=== PATIENT | male | born 1980 | race Caucasian/White ===

== ENCOUNTER 2018-04-10 12:13 | Emergency (ER) | payer OTHER ==
[2018-04-10] MEDS ORDERED: DIPH,PERTUS(ACELL)TETVAC-LF 0.5 ML VIAL IM ONE (12:35)
[2018-04-10] MEDS ORDERED: PROPARACAINE 0.5% OPHTH DROPS 15 ML BTL BOTH EYES STA (13:12)
[2018-04-10] MEDS ORDERED: ERYTHROMYCIN 5 MG/GM OPHTH OINT 3.5 GM TUBE LEFT EYE STA (14:11)
--- NOTE | 2018-04-10 14:13 | ED ---
General Adult HPI - General Chief complaint: Eye Problems Stated complaint: POSS FB IN BOTH EYES Time Seen by Provider: 04/10/18 12:41 Source: patient, RN notes reviewed Mode of arrival: ambulatory Limitations: no limitations - History of Present Illness Initial comments: 37-year-old male presents to the emergency department for the chief complaint of foreign body in the left eye. Patient states he was working on a bench 3 days ago. He denies any significant pain at that time however shortly afterwards stated his left eye began to hurt. He states it is making the left side of his nose run. Patient admits to pain with light in both eyes however states he believes this is because his left eye associated sensitive. He denies any significant pain in the right eye. Patient is not up-to-date with tetanus vaccination. He denies any significant visual changes besides blurriness due to Pain with opening his left eye. Patient has no other complaints at this time including shortness of breath, chest pain, abdominal pain, nausea or vomiting, headache. - Related Data Home Medications Medication Instructions Recorded Confirmed Gabapentin [Neurontin] 600 mg PO HS 03/26/15 03/26/15 HYDROcodone/APAP 10-325MG [[place] 1 tab PO Q4HR PRN 03/26/15 03/26/15 10-325] Previous Rx's Medication Instructions Recorded Meclizine [Antivert] 25 mg PO DAILY 10 Days tab 03/26/15 Naproxen 500 mg PO Q12HR 14 Days tab 03/26/15 Allergies Allergy/AdvReac Type Severity Reaction Status Date / Time No Known Allergies Allergy Verified 04/10/18 12:34 Review of Systems ROS Statement: Those systems with pertinent positive or pertinent negative responses have been documented in the HPI. ROS Other: All systems not noted in ROS Statement are negative. 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 down legs History of Any Multi-Drug Resistant Organisms: None Reported Past Surgical History: No Surgical Hx Reported Past Psychological History: ADD/ADHD, Anxiety Smoking Status: Current every day smoker Past Alcohol Use History: None Reported Past Drug Use History: Marijuana General Exam Limitations: no limitations General appearance: alert, in no apparent distress Head exam: Present: atraumatic, normocephalic, normal inspection Eye exam: Present: PERRL, EOMI, conjunctival injection (Mild conjunctival injection), other (Small sub milimeter foreign body noted in the center of the left cornea. No foreign bodies evident in the right cornea. Lids were flipped on both eyes. No foreign bodies evident.). Absent: scleral icterus, periorbital swelling ENT exam: Present: normal exam, mucous membranes moist Neck exam: Present: normal inspection. Absent: tenderness, meningismus, lymphadenopathy Respiratory exam: Present: normal lung sounds bilaterally. Absent: respiratory distress, wheezes, rales, rhonchi, stridor Cardiovascular Exam: Present: regular rate, normal rhythm, normal heart sounds. Absent: systolic murmur, diastolic murmur, rubs, gallop, clicks Neurological exam: Present: alert, oriented X3, CN II-XII intact Psychiatric exam: Present: normal affect, normal mood Course Vital Signs 04/10/18 04/10/18 04/10/18 12:30 13:47 14:29 Temperature 97.8 F 97.6 F 97.8 F Pulse Rate 86 81 82 Respiratory 16 18 16 Rate Blood Pressure 147/90 130/87 127/80 O2 Sat by Pulse 98 98 98 Oximetry Medical Decision Making - Medical Decision Making 37-year-old male presents to the emergency department for a chief complaint of foreign body in the left eye. Patient states this occurred about 3 days ago. He does believe it is metal. He admits to minor irritation in the right eye when looking at bright lights that believes this is due to the irritation in his left eye which is significantly more prominent. On exam patient does have a small 7 mm foreign body that appears to be metal in the left center cornea. Both lids were flipped on bilateral eyes and no evidence of foreign body under eyelids. Proparacaine was used to numb the left eye. Q-tip was used to remove the foreign body without success. 18-gauge needle did remove the foreign body on the first attempt. However small rust ring does remain. Pine Knot brush was used to remove the rust ring. The eye was then stained with fluorescein stain and Wood's lamp was used to visualize the eye. This is the only area of abrasion noted. Negative Rodrigo sign. Patient was given tetanus shot. He was given erythromycin ointment here. He does not wear contacts. I did discuss urgent follow-up with gunner's mate g due to possible remnants of rust ring as I could not completely remove the ring. However much of the ring was removed without difficulty. Patient will follow-up and return if he has any worsening symptoms. Disposition Clinical Impression: Corneal foreign body, Corneal rust ring of left eye Disposition: HOME SELF-CARE Condition: Good Instructions: Corneal Abrasion (ED), Eye Foreign Body (ED) Additional Instructions: Please follow up with ophthalmology in one to 2 days. Please use antibiotic ointment as directed. Return to the emergency department if you have any worsening symptoms. Is patient prescribed a controlled substance at d/c from ED?: No Referrals: Alcon Perea MD [Primary Care Provider] - 1-2 days Wyatt Jarvis MD [STAFF PHYSICIAN] - 1-2 days Time of Disposition: 14:12
[2018-04-10 14:30] VITALS: BP 127/80; PULSE 82; RESP 16; TEMP 97.8
== END 2018-04-10 14:29 | disposition home or self-care (01) ==
LOC: EC 12:13
DX: T15.02XA Foreign body in cornea, left eye, initial encounter (principal); F41.9 Anxiety disorder, unspecified; F17.200 Nicotine dependence, unspecified, uncomplicated; Z79.899 Other long term (current) drug therapy; Z86.69 Personal history of other diseases of the nervous system and sense organs; Z23 Encounter for immunization; Y93.89 Activity, other specified; Y92.009 Unspecified place in unspecified non-institutional (private) residence as the place of occurrence of the external cause
CPT/HCPCS: 65220; 90471; 90715; 99283

== ENCOUNTER → 2018-05-30 | Outpatient (CLI) | payer BC ==
--- NOTE | 2018-05-30 20:47 | MR ---
EXAMINATION TYPE: MR brain wo/w con DATE OF EXAM: 05/30/2018 COMPARISON: CT brain 03/26/2015 HISTORY: Optic atrophy, lt sided vision loss TECHNIQUE: Multiplanar, multisequence images of the brain and brainstem is performed without and with IV contras t, utilizing 9.5 mL intravenous Gadavist . FINDINGS: Diffusion weighted images demonstrate no evidence of a recent infarct or other diffusion ab normality. There is no extra-axial fluid collection or significant white matter signal abnormality, small focus of increased signal on inversion recovery and T2-weighted sequences in the left frontal w emperatriz matter on axial image 19 is indeterminate and of questionable clinical significance. The ventri cular system and cisternal spaces are normal in size and appearance. The brain volume is age appropr iate. Midline structures demonstrate normal morphology. The craniocervical junction appears within normal limits. Post contrast images demonstrate no abnormal enhancement. The dural venous sinuses appear pa tent. The visualized sinuses are remarkable for possible polyp or mucus retention cyst left maxillary sinus and the globes are intact. IMPRESSION: Nonspecific findings described above. No abnormality evident to account for patient's sym ptoms.
== END | disposition home or self-care (01) ==
LOC: RADMRIMAIN 19:10
PROVIDERS: ATTEND Ophthalmology
DX: H47.212 Primary optic atrophy, left eye (principal); H53.122 Transient visual loss, left eye
CPT/HCPCS: 70553; A9585

== ENCOUNTER 2019-02-28 08:09 | Emergency (ER) | payer BC, OTHER ==
[2019-02-28] MEDS ORDERED: IPRATROPIUM-ALBUTEROL 3 ML NEB INHALATION STA (08:29)
--- NOTE | 2019-02-28 08:34 | ED ---
Chest Pain HPI - General Chief Complaint: Chest Pain Stated Complaint: chest pain Time Seen by Provider: 02/28/19 08:16 Source: patient Mode of arrival: ambulatory Limitations: no limitations - History of Present Illness Initial Comments: This is a 37-year-old male who benign past medical history states he's had a racing heart sensation or past several days this morning and way to work he started feeling left-sided chest pain initially sharp in no apparent: Nature mild to moderate in severity he also complains of some dizziness and fatigue some slight shortness of breath. He also states he has some back pain also in the same area he is a smoker he denies any recent fevers chills nausea vomiting sweats we did have diaphoresis today. No overt phlegm production. Feeling family history of heart disease was a cousin had a relatively early age. No other modifying factors MD Complaint: chest pain - Related Data Previous Rx's Medication Instructions Recorded Albuterol Inhaler [Ventolin Hfa 2 puff INHALATION Q6HR PRN #1 02/28/19 Inhaler] inhaler Ibuprofen 800 mg PO Q6HR PRN #20 tablet 02/28/19 Allergies Allergy/AdvReac Type Severity Reaction Status Date / Time No Known Allergies Allergy Verified 02/28/19 09:04 Review of Systems ROS Statement: Those systems with pertinent positive or pertinent negative responses have been documented in the HPI. ROS Other: All systems not noted in ROS Statement are negative. 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 down legs History of Any Multi-Drug Resistant Organisms: None Reported Past Surgical History: No Surgical Hx Reported Past Psychological History: No Psychological Hx Reported, ADD/ADHD, Anxiety Smoking Status: Current every day smoker Past Alcohol Use History: Occasional Past Drug Use History: Marijuana General Exam - General Exam Comments Initial Comments: This is a well-developed well-nourished awake alert oriented 3 male Limitations: no limitations General appearance: alert, in no apparent distress Head exam: Present: atraumatic, normocephalic, normal inspection Eye exam: Present: normal appearance, PERRL, EOMI. Absent: scleral icterus, conjunctival injection, periorbital swelling ENT exam: Present: normal exam, mucous membranes moist Neck exam: Present: normal inspection, full ROM, other (No stridor JVD or bruits). Absent: tenderness, meningismus, lymphadenopathy Respiratory exam: Present: chest wall tenderness (Reproducible tenderness palpation of the left costochondral margin no step-off or crepitation.[id number]), decreased breath sounds. Absent: respiratory distress, wheezes, rales, rhonchi, stridor Cardiovascular Exam: Present: regular rate, normal rhythm, normal heart sounds. Absent: systolic murmur, diastolic murmur, rubs, gallop, clicks GI/Abdominal exam: Present: soft, normal bowel sounds. Absent: distended, tenderness, guarding, rebound, rigid Extremities exam: Present: normal inspection, full ROM, normal capillary refill. Absent: tenderness, pedal edema, joint swelling, calf tenderness Back exam: Present: normal inspection Neurological exam: Present: alert, oriented X3, CN II-XII intact Psychiatric exam: Present: normal affect, normal mood Skin exam: Present: warm, dry, intact, normal color. Absent: rash Course Vital Signs 02/28/19 02/28/19 02/28/19 08:12 08:36 08:47 Temperature 97.9 F Pulse Rate 63 64 64 Respiratory 18 Rate Blood Pressure 127/84 O2 Sat by Pulse 98 Oximetry 02/28/19 02/28/19 02/28/19 09:00 09:06 09:08 Temperature 97.7 F Pulse Rate 69 Respiratory 15 20 20 Rate Blood Pressure 97/70 O2 Sat by Pulse 97 Oximetry Procedures - Smoking Cessation Time Spent Discussing Smoking Cessation w/Patient (Minutes): 3 Patient Acknowledges Need for Cessation: No Chest Pain MDM - MDM I did review the imaging and report no acute findings patient is feeling somewhat improved the presentation is consistent with costochondritis and chest wall pain in addition to some bronchospasm. I did a long discussion with him and his family he will be discharged on appropriate medication for the same. He was again encouraged to stop smoking Disposition Clinical Impression: Costochondritis, Chest wall syndrome, Acute bronchospasm, Smoking Disposition: HOME SELF-CARE Condition: Good Instructions (If sedation given, give patient instructions): Costochondritis (ED), Bronchospasm (ED) Additional Instructions: Prescriptions sent ER [facility] pharmacy Prescriptions: Ibuprofen 800 mg PO Q6HR PRN #20 tablet PRN Reason: Pain Albuterol Inhaler [Ventolin Hfa Inhaler] 2 puff INHALATION Q6HR PRN #1 inhaler PRN Reason: Dyspnea Is patient prescribed a controlled substance at d/c from ED?: No Referrals: None,Stated [Primary Care Provider] - 1-2 days
[2019-02-28 09:06] VITALS: TEMP 97.7
--- NOTE | 2019-02-28 09:13 | XR ---
EXAMINATION TYPE: XR chest 2V DATE OF EXAM: 02/28/2019 COMPARISON: NONE HISTORY: Chest pain TECHNIQUE: Frontal and lateral views of the chest are obtained. FINDINGS: There is no focal air space opacity. No evidence for pneumothorax. No pleural effusion. The cardiac silhouette size is within normal limits. The osseous structures are grossly intact. IMPRESSION: 1. No acute cardiopulmonary process.
[2019-02-28 09:14] LABS: Basophils # (A) 0.1 k/uL (0-0.2); Basophils % (A) 1 %; Eosinophils # (A) 0.1 k/uL (0-0.7); Eosinophils % (A) 2 %; HGB 15.9 gm/dL (13.0-17.5); Lymphocytes # (A) 1.5 k/uL (1.0-4.8); Lymphocytes % (A) 18 %; MCH 32.1 pg (25.0-35.0); MCHC 34.6 g/dL (31.0-37.0); MCV 92.8 fL (80.0-100.0); Mean Platelet Volume 5.6; Monocytes # (A) 0.7 k/uL (0-1.0); Monocytes % (A) 8 %; Neutrophils # (A) 5.5 k/uL (1.3-7.7); Neutrophils % (A) 68 %; Platelet Count 381 k/uL (150-450); RBC 4.96 m/uL (4.30-5.90)
[2019-02-28 09:30] LABS: INR 0.9 (<1.2); Partial Thromboplastin Time 24.4 sec (22.0-30.0); Prothrombin Time 9.8 sec (9.0-12.0)
[2019-02-28 09:36] LABS: ALT 28 U/L (21-72); AST 24 U/L (17-59); African American GFR (CKD) >90 (>60 ml/min/1.73 sqM); Albumin 4.5 g/dL (3.5-5.0); Alkaline Phosphatase 91 U/L (38-126); Anion Gap 8 mmol/L; Blood Urea Nitrogen 13 mg/dL (9-20); Calcium 10.1 mg/dL (8.4-10.2); Carbon Dioxide 24 mmol/L (22-30); Chloride 107 mmol/L (98-107); Creatine Kinase 378 U/L (55-170); Glucose 95 mg/dL (74-99); Magnesium 2.1 mg/dL (1.6-2.3); Potassium 4.8 mmol/L (3.5-5.1); Sodium 139 mmol/L (137-145); Total Bilirubin 0.7 mg/dL (0.2-1.3); Total Protein 7.1 g/dL (6.3-8.2)
[2019-02-28 09:42] LABS: D-Dimer <0.17 mg/L FEU (<0.60)
[2019-02-28] MEDS ORDERED: KETOROLAC 30 MG/ML 1 ML VIAL IVP STA (10:23)
[2019-02-28 11:19] VITALS: BP 97/65; PULSE 57; RESP 18
== END 2019-02-28 11:24 | disposition home or self-care (01) ==
LOC: EC 08:09
DX: M94.0 Chondrocostal junction syndrome [Tietze] (principal); J98.01 Acute bronchospasm; F17.200 Nicotine dependence, unspecified, uncomplicated; Z71.6 Tobacco abuse counseling
CPT/HCPCS: 36415; 94640; 93005; 85379; 83880; 80053; 84443; 82550; 83690; 83735; 84484; 85025; 85610; 85730; 71046; 99285; 96374; J1885

== ENCOUNTER 2019-07-01 01:10 | Emergency (ER) | payer BC, OTHER ==
[2019-07-01] MEDS ORDERED: SODIUM CHLORIDE 0.9% 1,000 ML IV STA (01:47)
[2019-07-01] MEDS ORDERED: KETOROLAC 30 MG/ML 1 ML VIAL IVP STA (01:47)
[2019-07-01 03:01] LABS: Basophils # (A) 0.1 k/uL (0-0.2); Basophils % (A) 0 %; Eosinophils # (A) 0.1 k/uL (0-0.7); Eosinophils % (A) 1 %; HCT 46.8 % (39.0-53.0); HGB 15.7 gm/dL (13.0-17.5); Lymphocytes # (A) 1.2 k/uL (1.0-4.8); Lymphocytes % (A) 6 %; MCH 30.2 pg (25.0-35.0); MCHC 33.5 g/dL (31.0-37.0); MCV 90.1 fL (80.0-100.0); Mean Platelet Volume 7.5; Monocytes # (A) 1.5 k/uL (0-1.0); Monocytes % (A) 7 %; Neutrophils # (A) 18.3 k/uL (1.3-7.7); Neutrophils % (A) 85 %; Platelet Count 324 k/uL (150-450); RDW 12.7 % (11.5-15.5); WBC 21.5 k/uL (3.8-10.6)
[2019-07-01 03:07] LABS: ALT 17 U/L (4-49); AST 23 U/L (17-59); African American GFR (CKD) >90 (>60 ml/min/1.73 sqM); Albumin 4.7 g/dL (3.5-5.0); Alkaline Phosphatase 123 U/L (38-126); Anion Gap 9 mmol/L; Blood Urea Nitrogen 10 mg/dL (9-20); Calcium 9.6 mg/dL (8.4-10.2); Carbon Dioxide 25 mmol/L (22-30); Chloride 102 mmol/L (98-107); Glucose 107 mg/dL (74-99); Magnesium 2.2 mg/dL (1.6-2.3); Non-African American GFR(CKD) >90 (>60 ml/min/1.73 sqM); Potassium 4.8 mmol/L (3.5-5.1); Sodium 136 mmol/L (137-145); Total Bilirubin 0.9 mg/dL (0.2-1.3); Total Protein 7.7 g/dL (6.3-8.2)
--- NOTE | 2019-07-01 03:18 | XR ---
EXAMINATION TYPE: XR chest 2V DATE OF EXAM: 07/01/2019 COMPARISON: 02/28/2019 HISTORY: Chest pain TECHNIQUE: 02/28/2019 FINDINGS: Heart is normal. Lungs are clear of consolidation. There is linear density right lung base. There are chest leads. Bony thorax is intact. IMPRESSION: There is mild subsegmental atelectasis right lung base that appears new compared to old e xam.
[2019-07-01 03:22] LABS: D-Dimer 0.19 mg/L FEU (<0.60); INR 0.9 (<1.2); Prothrombin Time 9.4 sec (9.0-12.0)
[2019-07-01 03:51] VITALS: RESP 18
[2019-07-01] MEDS ORDERED: IPRATROPIUM-ALBUTEROL 3 ML NEB INHALATION STA (04:14)
[2019-07-01] MEDS ORDERED: MORPHINE SULFATE 4 MG/ML SYRINGE IVP STA (04:52)
[2019-07-01] MEDS ORDERED: ONDANSETRON 4 MG/2 ML VIAL IVP STA (04:52)
--- NOTE | 2019-07-01 04:52 | ED ---
General Adult HPI - General Chief complaint: Chest Pain Stated complaint: Chest Pain Time Seen by Provider: 07/01/19 01:27 Source: patient, family Mode of arrival: wheelchair Limitations: no limitations - History of Present Illness Initial comments: 39-year-old male patient presents to the emergency department today for evaluation of left-sided chest pain. Patient describes the pain as a sharp stabbing pain that goes straight through to his back. Patient states the pain worsens with breathing. Patient states pain has been going on throughout the d ay but worsened significantly tonight. Patient states he is short of breath with this. Patient states he has been sick with upper respiratory symptoms including cough, congestion, fever for the last week. Temps as high as 102 degrees Fahrenheit. Patient states he is coughing up sputum. Patient states that the flu has been going through his house. He denies any history of lung conditions. States he does smoke cigarettes. He denies any history of IV drug use. Patient denies any recent rash, abdominal pain, nausea, vomiting, diarrhea, constipation, numbness, tingling, dizziness, weakness, hematuria, dysuria, urinary urgency, urinary frequency, headache, visual changes, or any other complaints. - Related Data Previous Rx's Medication Instructions Recorded Albuterol Inhaler [Ventolin Hfa 2 puff INHALATION Q6HR PRN #1 02/28/19 Inhaler] inhaler Ibuprofen 800 mg PO Q6HR PRN #20 tablet 02/28/19 Colchicine 0.6 mg PO BID #60 capsule 07/01/19 Ibuprofen [Motrin] 600 mg PO Q8HR PRN #60 tab 07/01/19 Allergies Allergy/AdvReac Type Severity Reaction Status Date / Time No Known Allergies Allergy Verified 07/01/19 01:25 Review of Systems ROS Statement: Those systems with pertinent positive or pertinent negative responses have been documented in the HPI. ROS Other: All systems not noted in ROS Statement are negative. 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 Vital signs upon presentation are temperature 98.6F, pulse 84, respirations 15, blood pressure 135/102, pulse ox 95% on room air per) Eye exam: Present: normal appearance, PERRL, EOMI. Absent: scleral icterus, conjunctival injection, periorbital swelling ENT exam: Present: normal exam, normal oropharynx, mucous membranes moist, TM's normal bilaterally Respiratory exam: Present: normal lung sounds bilaterally, respiratory distress (Tachypnea, abdominal accessory muscle use), chest wall tenderness (Left-sided). Absent: wheezes, rales, rhonchi, stridor Cardiovascular Exam: Present: regular rate, normal rhythm, normal heart sounds. Absent: systolic murmur, diastolic murmur, rubs, gallop, clicks GI/Abdominal exam: Present: soft, normal bowel sounds. Absent: distended, tenderness, guarding, rebound, rigid Neurological exam: Present: alert, oriented X3, CN II-XII intact Psychiatric exam: Present: normal affect, normal mood Skin exam: Present: warm, dry, intact, normal color. Absent: rash Course Vital Signs 07/01/19 07/01/19 07/01/19 01:22 03:51 04:38 Temperature 98.6 F Pulse Rate 84 75 76 Respiratory 15 18 Rate Blood Pressure 135/102 111/76 O2 Sat by Pulse 95 97 Oximetry 07/01/19 04:54 Temperature Pulse Rate 84 Respiratory Rate Blood Pressure O2 Sat by Pulse Oximetry EKG Findings - EKG Comments: EKG Findings:: EKG obtained at 05 20 shows normal sinus rhythm with a ventricular rate of 80, SD interval 134, QRS duration 86, QT 374, QTC 431. No evidence of ST elevation or depression. Medical Decision Making - Medical Decision Making 39-year-old male patient presents to the emergency department today for evaluation of left-sided chest pain. He describes the pain is sharp stabbing and radiating through to the back. Pain worsens with deep breathing and movement. Labs reviewed and did reveal elevated white blood cell count at 21.5. Chest x-ray shows no acute cardiopulmonary process. Troponin negative. V/S show no major abnormalities. He is afebrile. Oxygen saturation is 97-100% on room air. He is given breathing treatments which did not seem to improve his symptoms. He is given a dose of Toradol and morphine which did seem to improve his pain. Patient symptoms seem consistent with pericarditis, possibly pleuritis. He'll be discharged with anti-inflammatory medications for treatment. He is instructed to follow up with his primary care physician for recheck in 1-2 days. Return parameters were discussed in detail. He verbalizes understanding and agrees with this plan. - Lab Data Result diagrams: 07/01/19 01:35 07/01/19 01:35 Lab Results 07/01/19 07/01/19 07/01/19 Range/Units 01:35 01:35 01:35 WBC 21.5 H (3.8-10.6) k/uL RBC 5.20 (4.30-5.90) m/uL Hgb 15.7 (13.0-17.5) gm/dL Hct 46.8 (39.0-53.0) % MCV 90.1 (80.0-100.0) fL MCH 30.2 (25.0-35.0) pg MCHC 33.5 (31.0-37.0) g/dL RDW 12.7 (11.5-15.5) % Plt Count 324 (150-450) k/uL Neutrophils % 85 % Lymphocytes % 6 % Monocytes % 7 % Eosinophils % 1 % Basophils % 0 % Neutrophils # 18.3 H (1.3-7.7) k/uL Lymphocytes # 1.2 (1.0-4.8) k/uL Monocytes # 1.5 H (0-1.0) k/uL Eosinophils # 0.1 (0-0.7) k/uL Basophils # 0.1 (0-0.2) k/uL PT 9.4 (9.0-12.0) sec INR 0.9 (<1.2) APTT 25.0 (22.0-30.0) sec D-Dimer 0.19 (<0.60) mg/L FEU Sodium 136 L (137-145) mmol/L Potassium 4.8 (3.5-5.1) mmol/L Chloride 102 (98-107) mmol/L Carbon Dioxide 25 (22-30) mmol/L Anion Gap 9 mmol/L BUN 10 (9-20) mg/dL Creatinine 0.91 (0.66-1.25) mg/dL Est GFR (CKD-EPI)AfAm >90 (>60 ml/min/1.73 sqM) Est GFR (CKD-EPI)NonAf >90 (>60 ml/min/1.73 sqM) Glucose 107 H (74-99) mg/dL Calcium 9.6 (8.4-10.2) mg/dL Magnesium 2.2 (1.6-2.3) mg/dL Total Bilirubin 0.9 (0.2-1.3) mg/dL AST 23 (17-59) U/L ALT 17 (4-49) U/L Alkaline Phosphatase 123 (38-126) U/L Troponin I (0.000-0.034) ng/mL Total Protein 7.7 (6.3-8.2) g/dL Albumin 4.7 (3.5-5.0) g/dL Influenza Type A RNA (Not Detectd) Influenza Type B (PCR) (Not Detectd) 07/01/19 07/01/19 Range/Units 01:35 03:48 WBC (3.8-10.6) k/uL RBC (4.30-5.90) m/uL Hgb (13.0-17.5) gm/dL Hct (39.0-53.0) % MCV (80.0-100.0) fL MCH (25.0-35.0) pg MCHC (31.0-37.0) g/dL RDW (11.5-15.5) % Plt Count (150-450) k/uL Neutrophils % % Lymphocytes % % Monocytes % % Eosinophils % % Basophils % % Neutrophils # (1.3-7.7) k/uL Lymphocytes # (1.0-4.8) k/uL Monocytes # (0-1.0) k/uL Eosinophils # (0-0.7) k/uL Basophils # (0-0.2) k/uL PT (9.0-12.0) sec INR (<1.2) APTT (22.0-30.0) sec D-Dimer (<0.60) mg/L FEU Sodium (137-145) mmol/L Potassium (3.5-5.1) mmol/L Chloride (98-107) mmol/L Carbon Dioxide (22-30) mmol/L Anion Gap mmol/L BUN (9-20) mg/dL Creatinine (0.66-1.25) mg/dL Est GFR (CKD-EPI)AfAm (>60 ml/min/1.73 sqM) Est GFR (CKD-EPI)NonAf (>60 ml/min/1.73 sqM) Glucose (74-99) mg/dL Calcium (8.4-10.2) mg/dL Magnesium (1.6-2.3) mg/dL Total Bilirubin (0.2-1.3) mg/dL AST (17-59) U/L ALT (4-49) U/L Alkaline Phosphatase (38-126) U/L Troponin I <0.012 (0.000-0.034) ng/mL Total Protein (6.3-8.2) g/dL Albumin (3.5-5.0) g/dL Influenza Type A RNA Not Detected (Not Detectd) Influenza Type B (PCR) Not Detected (Not Detectd) - Radiology Data Radiology results: report reviewed, image reviewed Two-view x-ray of the chest is obtained. Report is reviewed in its entirety. Impression by Dr. Antonio shows mild subsegmental atelectasis right lung base that appears new compared to old exam. Disposition Clinical Impression: Chest pain, Pericarditis Disposition: HOME SELF-CARE Condition: Good Instructions (If sedation given, give patient instructions): Acute Pericarditis (ED) Additional Instructions: Take medications as directed. Follow up with your primary care physician for recheck in 1-2 days. Return to the emergency department immediately for any new, worsening, or concerning symptoms. Prescriptions: Colchicine 0.6 mg PO BID #60 capsule Ibuprofen [Motrin] 600 mg PO Q8HR PRN #60 tab PRN Reason: Pain Is patient prescribed a controlled substance at d/c from ED?: No Referrals: Alcon Perea MD [Primary Care Provider] - 1-2 days Time of Disposition: 05:35
[2019-07-01] MEDS ORDERED: COLCHICINE 0.6 MG EACH PO STA (05:26)
[2019-07-01] MEDS ORDERED: ACET/COD 300 MG/30 MG STARTER PACK 6 TAB BTL PO STA (05:35)
[2019-07-01 05:54] VITALS: BP 113/75; PULSE 72; TEMP 99.2
== END 2019-07-01 05:54 | disposition home or self-care (01) ==
LOC: EC 01:10
DX: I31.9 Disease of pericardium, unspecified (principal); D72.829 Elevated white blood cell count, unspecified; F17.200 Nicotine dependence, unspecified, uncomplicated
CPT/HCPCS: 36415; 94640; 93005; 85379; 80053; 83735; 84484; 85025; 85610; 85730; 87502; 71046; 99284; 96374; 96375 ×2; 96361 ×2; J2270; J2405; J1885

== ENCOUNTER 2019-07-01 22:44 | Inpatient (IN) | payer BC, OTHER ==
[2019-07-01] MEDS ORDERED: MORPHINE SULFATE 4 MG/ML SYRINGE IV STA (23:08)
[2019-07-01] MEDS ORDERED: SODIUM CHLORIDE 0.9% 500 ML 500 ML IV STA (23:08)
[2019-07-01 23:24] LABS: Basophils # (A) 0.1 k/uL (0-0.2); Basophils % (A) 0 %; Eosinophils # (A) 0.3 k/uL (0-0.7); Eosinophils % (A) 1 %; HCT 47.4 % (39.0-53.0); HGB 15.9 gm/dL (13.0-17.5); Lymphocytes % (A) 4 %; MCH 30.6 pg (25.0-35.0); MCHC 33.5 g/dL (31.0-37.0); MCV 91.3 fL (80.0-100.0); Mean Platelet Volume 7.1; Monocytes # (A) 1.3 k/uL (0-1.0); Monocytes % (A) 5 %; Neutrophils # (A) 23.1 k/uL (1.3-7.7); Neutrophils % (A) 89 %; Platelet Count 359 k/uL (150-450); RBC 5.19 m/uL (4.30-5.90); RDW 12.8 % (11.5-15.5)
--- NOTE | 2019-07-01 23:32 | ED ---
General Adult HPI - General Chief complaint: Chest Pain Stated complaint: Chest pain/SOB Time Seen by Provider: 07/01/19 22:50 Source: patient, RN notes reviewed, old records reviewed Mode of arrival: ambulatory Limitations: no limitations - History of Present Illness Initial comments: 39-year-old male presenting for evaluation of left-sided chest pain. Patient was seen emergency department yesterday for same complaint, he had chest pain workup that was negative and was discharged home. He returns today for reevaluation of the same left-sided chest pain which is sharp in nature. He does report a mild cough. Pain is worse with deep inspiration. He has no known history of coronary artery disease. No history of DVT or PE. He is a current smoker. No history of asthma or COPD. Denies fever or chills. Denies nausea or vomiting. Denies lower extremity pain or swelling. - Related Data Previous Rx's Medication Instructions Recorded Albuterol Inhaler [Ventolin Hfa 2 puff INHALATION Q6HR PRN #1 02/28/19 Inhaler] inhaler Ibuprofen 800 mg PO Q6HR PRN #20 tablet 02/28/19 Colchicine 0.6 mg PO BID #60 capsule 07/01/19 Ibuprofen [Motrin] 600 mg PO Q8HR PRN #60 tab 07/01/19 Allergies Allergy/AdvReac Type Severity Reaction Status Date / Time No Known Allergies Allergy Verified 07/01/19 22:48 Review of Systems ROS Statement: Those systems with pertinent positive or pertinent negative responses have been documented in the HPI. ROS Other: All systems not noted in ROS Statement are negative. 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 down legs History of Any Multi-Drug Resistant Organisms: None Reported Past Surgical History: No Surgical Hx Reported Past Psychological History: No Psychological Hx Reported, ADD/ADHD, Anxiety Smoking Status: Current every day smoker Past Alcohol Use History: Occasional Past Drug Use History: Marijuana General Exam Limitations: no limitations General appearance: alert, in no apparent distress Head exam: Present: atraumatic, normocephalic Eye exam: Present: normal appearance, PERRL ENT exam: Present: normal exam Neck exam: Present: normal inspection. Absent: tenderness, meningismus Respiratory exam: Present: normal lung sounds bilaterally. Absent: respiratory distress, wheezes, chest wall tenderness Cardiovascular Exam: Present: regular rate, normal rhythm GI/Abdominal exam: Present: soft. Absent: distended, tenderness, guarding, rebound Back exam: Present: normal inspection Neurological exam: Present: alert, oriented X3, CN II-XII intact. Absent: motor sensory deficit Psychiatric exam: Present: normal affect, normal mood Skin exam: Present: warm, dry, intact. Absent: cyanosis, diaphoretic Course Vital Signs 07/01/19 22:47 Temperature 98.2 F Pulse Rate 89 Respiratory 20 Rate Blood Pressure 143/80 O2 Sat by Pulse 99 Oximetry EKG Findings - EKG Comments: EKG Findings:: EKG: Normal sinus rhythm, rate of 90, MS interval 138 QRS duration 86, QTC 433, T-wave inversion 3, no ST segment elevation Medical Decision Making - Medical Decision Making 39-year-old male presenting with left-sided chest pain, worse with cough, worse with deep inspiration. Patient had flulike illness with fevers and cough over the past one week. Pain is pleuritic in nature. CT angiography is performed shows bilateral pneumonia. He has increasing white blood cell count at 26,000. Suspect his pain is from pleurisy secondary to pneumonia. He did have flulike illnesses covered for both community acquired pneumonia as well as post-i nfluenza pneumonia with gram-positive coverage. Patient will be admitted for IV antibiotics given the significant leukocytosis and the significant amount of pain that he is in. His troponin is negative yesterday and today. I suspect that all of his pain complaint can be related to pleurisy. He has no PE on CT angiography. Diagnosis: Bilateral pneumonia, pleurisy. - Lab Data Result diagrams: 07/01/19 22:57 07/01/19 22:57 Lab Results 07/01/19 07/01/19 07/01/19 Range/Units 22:57 22:57 22:57 WBC 26.0 H (3.8-10.6) k/uL RBC 5.19 (4.30-5.90) m/uL Hgb 15.9 (13.0-17.5) gm/dL Hct 47.4 (39.0-53.0) % MCV 91.3 (80.0-100.0) fL MCH 30.6 (25.0-35.0) pg MCHC 33.5 (31.0-37.0) g/dL RDW 12.8 (11.5-15.5) % Plt Count 359 (150-450) k/uL Neutrophils % 89 % Lymphocytes % 4 % Monocytes % 5 % Eosinophils % 1 % Basophils % 0 % Neutrophils # 23.1 H (1.3-7.7) k/uL Lymphocytes # 1.0 (1.0-4.8) k/uL Monocytes # 1.3 H (0-1.0) k/uL Eosinophils # 0.3 (0-0.7) k/uL Basophils # 0.1 (0-0.2) k/uL PT 9.9 (9.0-12.0) sec INR 0.9 (<1.2) APTT 24.8 (22.0-30.0) sec Sodium 135 L (137-145) mmol/L Potassium 4.3 (3.5-5.1) mmol/L Chloride 99 (98-107) mmol/L Carbon Dioxide 23 (22-30) mmol/L Anion Gap 13 mmol/L BUN 10 (9-20) mg/dL Creatinine 0.95 (0.66-1.25) mg/dL Est GFR (CKD-EPI)AfAm >90 (>60 ml/min/1.73 sqM) Est GFR (CKD-EPI)NonAf >90 (>60 ml/min/1.73 sqM) Glucose 97 (74-99) mg/dL Calcium 9.4 (8.4-10.2) mg/dL Magnesium 2.1 (1.6-2.3) mg/dL Total Bilirubin 1.4 H (0.2-1.3) mg/dL AST 22 (17-59) U/L ALT 14 (4-49) U/L Alkaline Phosphatase 126 (38-126) U/L Troponin I (0.000-0.034) ng/mL Total Protein 7.7 (6.3-8.2) g/dL Albumin 4.6 (3.5-5.0) g/dL Lipase 304 H (23-300) U/L 07/01/19 Range/Units 22:57 WBC (3.8-10.6) k/uL RBC (4.30-5.90) m/uL Hgb (13.0-17.5) gm/dL Hct (39.0-53.0) % MCV (80.0-100.0) fL MCH (25.0-35.0) pg MCHC (31.0-37.0) g/dL RDW (11.5-15.5) % Plt Count (150-450) k/uL Neutrophils % % Lymphocytes % % Monocytes % % Eosinophils % % Basophils % % Neutrophils # (1.3-7.7) k/uL Lymphocytes # (1.0-4.8) k/uL Monocytes # (0-1.0) k/uL Eosinophils # (0-0.7) k/uL Basophils # (0-0.2) k/uL PT (9.0-12.0) sec INR (<1.2) APTT (22.0-30.0) sec Sodium (137-145) mmol/L Potassium (3.5-5.1) mmol/L Chloride (98-107) mmol/L Carbon Dioxide (22-30) mmol/L Anion Gap mmol/L BUN (9-20) mg/dL Creatinine (0.66-1.25) mg/dL Est GFR (CKD-EPI)AfAm (>60 ml/min/1.73 sqM) Est GFR (CKD-EPI)NonAf (>60 ml/min/1.73 sqM) Glucose (74-99) mg/dL Calcium (8.4-10.2) mg/dL Magnesium (1.6-2.3) mg/dL Total Bilirubin (0.2-1.3) mg/dL AST (17-59) U/L ALT (4-49) U/L Alkaline Phosphatase (38-126) U/L Troponin I <0.012 (0.000-0.034) ng/mL Total Protein (6.3-8.2) g/dL Albumin (3.5-5.0) g/dL Lipase (23-300) U/L Disposition Clinical Impression: Pleurisy, Bilateral pneumonia Disposition: ADMITTED IP TO THIS [facility] Condition: Stable Is patient prescribed a controlled substance at d/c from ED?: No Referrals: Alcon Perea MD [Primary Care Provider] - 1-2 days Decision to Admit Reason: Admit from EC Decision Date: 07/01/19 Decision Time: 23:57
[2019-07-01 23:35] LABS: ALT 14 U/L (4-49); AST 22 U/L (17-59); African American GFR (CKD) >90 (>60 ml/min/1.73 sqM); Albumin 4.6 g/dL (3.5-5.0); Alkaline Phosphatase 126 U/L (38-126); Anion Gap 13 mmol/L; Blood Urea Nitrogen 10 mg/dL (9-20); Calcium 9.4 mg/dL (8.4-10.2); Carbon Dioxide 23 mmol/L (22-30); Chloride 99 mmol/L (98-107); Glucose 97 mg/dL (74-99); INR 0.9 (<1.2); Magnesium 2.1 mg/dL (1.6-2.3); Non-African American GFR(CKD) >90 (>60 ml/min/1.73 sqM); Potassium 4.3 mmol/L (3.5-5.1); Sodium 135 mmol/L (137-145); Total Bilirubin 1.4 mg/dL (0.2-1.3); Total Protein 7.7 g/dL (6.3-8.2)
[2019-07-01 23:36] LABS: Partial Thromboplastin Time 24.8 sec (22.0-30.0); Prothrombin Time 9.9 sec (9.0-12.0)
--- NOTE | 2019-07-01 23:45 | CT ---
EXAMINATION TYPE: CT angio chest DATE OF EXAM: 07/01/2019 COMPARISON: None HISTORY: SOB CT DLP: 407.9 mGycm Automated exposure control for dose reduction was used. CONTRAST: Performed with IV Contrast, patient injected with 80 mL of Isovue 370. Our 3-D post processed images. There is no mediastinal adenopathy. Thoracic aorta is intact. There is no aneurysm or dissection. The re are multiple bilateral hilar lymph nodes that measure up to 1.5 cm. Heart size is normal. There is no pericardial effusion. There is some wedge-shaped lingula consolidation of the left upper lobe. Th ere is some patchy infiltrate and atelectasis left posterior lung base. There is mild patchy atelecta sis right posterior lung base. There is no pleural effusion. I see no filling defects in the pulmonary arteries. Thoracic spine is intact. Bony thorax is intact. The upper abdominal soft tissues are intact. IMPRESSION: Bilateral patchy pneumonia and atelectasis as above. No evidence of pulmonary embolism. Normal heart. There are bilateral bronchial lymph nodes more likely related to inflammatory disease.
[2019-07-01] MEDS ORDERED: cefTRIAXone IN SWFI 1,000 MG/10 ML SYRINGE IVP STA (23:48)
[2019-07-01] MEDS ORDERED: KETOROLAC 30 MG/ML 1 ML VIAL IVP STA (23:48)
[2019-07-01] MEDS ORDERED: AZITHROMYCIN 500 MG in SODIUM CHLORIDE 0.9% 250 ML IVPB STA (23:48)
[2019-07-01] MEDS ORDERED: KETOROLAC 30 MG/ML 1 ML VIAL IVP PRN (23:50)
[2019-07-01] MEDS ORDERED: NALOXONE 0.4 MG/ML 1 ML VIAL IV PRN (23:50)
[2019-07-01] MEDS ORDERED: VANCOMYCIN IV PER PHARMACY 1 EACH MISC MISCELLANE PRN (23:50)
[2019-07-01] MEDS ORDERED: ACETAMINOPHEN TAB 325 MG TAB PO PRN (23:50)
[2019-07-02] MEDS: SODIUM CHLORIDE 0.9% 1,000 ML IV SCH ×2 (00:10→14:12)
[2019-07-02] MEDS ORDERED: VANCOMYCIN 1,500 MG in SODIUM CHLORIDE 0.9% 250 ML IVPB ONE (01:00)
[2019-07-02] MEDS: MORPHINE SULFATE 4 MG/ML SYRINGE IV PRN ×4 (01:50→14:12)
[2019-07-02] MEDS: VANCOMYCIN 1,750 MG in SODIUM CHLORIDE 0.9% 500 ML 500 ML IVPB SCH (14:12)
--- NOTE | 2019-07-02 14:31 | P.HPIM ---
History of Present Illness H&P Date: 07/02/19 Chief Complaint: Cough, sputum History of presenting complaint: This is a pleasant [address] mckeon from [facility]. Patient normally in good health except for herniated disc and some neuropathy from there. 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 Initially patient's 6-year-old son got sick and the mother got sick. For about a week. Patient started of with vomiting, cough, fever of 103., tired rundown. Also some diarrhea and aching muscles.. Patient come to the ER yesterday. Patient in the ER was felt to be pericarditis and was discharged home on colchicine and Motrin. Patient presents was still cough yellow-brown sputum, significant left-sided pleuritic chest pain. Predominantly with deep breathing or with coughing. Appetite has not been good. Tired rundown. Admitted. Review of systems: GEN.: Tired rundown, fever EYES: None HEENT: None NECK: None RESPIRATORY: As above CARDIOVASCULAR: None GASTROINTESTINAL: None GENITOURINARY: None MUSCULOSKELETAL: Chronic low back pain] LYMPHATICS: None HEMATOLOGICAL: None PSYCHIATRY: None NEUROLOGICAL: None Past medical history to include: Continue low back disc with some radiculopathy, ADHD, anxiety. 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 . Is a 6-year-old child at home. Does marijuana every other day. Smoking average of 2 packs a day for over 25 years. Denies use of any other drugs. Family history: Reviewed, noncontributory to presentation Physical examination: VITAL SIGNS: 98.6, 84, 15, 135/102, 95% on 2 L-open presentation GENERAL: BMI 29.5, sitting up, tired. EYES: Pupils equal. Conjunctiva normal. HEENT: External appearance of nose and ears normal, oral cavity grossly normal. NECK: JVD not raised; masses not palpable. HEART: First and second heart sounds are normal; no edema. No pericardial rub LUNGS: Respiratory rate increased, decreased breath sounds some wheezing some co arse breath sounds. ABDOMEN: Soft, nontender, liver spleen not palpable, no masses palpable. PSYCH: [Alert and oriented x3; mood and affect anxious. NEUROLOGICAL: Cranial nerves grossly intact; no facial asymmetry, power and sensation grossly intact. LYMPHATICS: No lymph nodes palpable in the axilla and neck INVESTIGATIONS, reviewed in the clinical context: White count 26 hemoglobin 15.9, increased neutrophils, potassium 4.3, crit 0.95. Influenza type A and B both negative. EKG tracing-personally reviewed by me. No ST segment changes sinus rhythm. No evidence of pericarditis. Chest CTA-bilateral infiltrates Assessment: -Acute bilateral pneumonitis with secondary bacterial infection. Possibly started as a viral infection from his son to his and himself. Possibly sepsis -Acute COPD exacerbation in a smoker -Chronic nicotine dependence patient cigarette smoker -Recreational marijuana use -Left-sided pleurisy. Plan: Patient be started on IV Zosyn every 6. Nebulized bronchodilators, inhaled and IV steroids. Sputum will be sent off for Gram stain and culture. IV fluids. Patient reassured. Lovenox for DVT prophylaxis. Nicotine patch. 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 down legs History of Any Multi-Drug Resistant Organisms: None Reported Past Surgical History: No Surgical Hx Reported Past Psychological History: No Psychological Hx Reported, ADD/ADHD, Anxiety Smoking Status: Current every day smoker Past Alcohol Use History: Occasional Additional Past Alcohol Use History / Comment(s): Patient reports not having smoked in the past 3 days Past Drug Use History: Marijuana Medications and Allergies Home Medications Medication Instructions Recorded Confirmed Type No Known Home Medications 07/02/19 07/02/19 History Allergies Allergy/AdvReac Type Severity Reaction Status Date / Time No Known Allergies Allergy Verified 07/02/19 10:32 Physical Exam Vitals: Vital Signs Temp Pulse Pulse Resp BP BP Pulse Ox 07/02/19 08:28 98.8 F 75 16 114/77 95 07/02/19 01:13 98.6 F 82 14 108/67 96 07/02/19 00:24 98.6 F 86 18 124/86 97 07/01/19 22:47 98.2 F 89 20 143/80 99 Intake and Output 07/01/19 07/02/19 07/02/19 22:59 06:59 14:59 Intake Total 250 Balance 250 Intake: Intake, IV Titration 250 Amount Vancomycin 1,500 mg In 250 Sodium Chloride 0.9% 250 ml @ 125 mls/hr IVPB ONCE ONE Rx#:[id number] Other: Weight 90.718 kg 90.718 kg Results CBC & Chem 7: 03/08/20 22:57 07/01/19 22:57 Labs: Abnormal Lab Results - Last 24 Hours (Table) 07/01/19 07/01/19 Range/Units 22:57 22:57 WBC 26.0 H (3.8-10.6) k/uL Neutrophils # 23.1 H (1.3-7.7) k/uL Monocytes # 1.3 H (0-1.0) k/uL Sodium 135 L (137-145) mmol/L Total Bilirubin 1.4 H (0.2-1.3) mg/dL Lipase 304 H (23-300) U/L Thrombosis Risk Factor Assmnt - Choose All That Apply Any of the Below Risk Factors Present?: No Other Risk Factors: No Other congenital or acquired thrombophilia - If yes, enter type in comment: No Thrombosis Risk Factor Assessment Level: Very Low Risk
[2019-07-02] MEDS: FAMOTIDINE 20 MG TAB PO SCH ×2 (15:53→21:42)
[2019-07-02] MEDS: IPRATROPIUM-ALBUTEROL 3 ML NEB INHALATION SCH ×3 (16:31→20:32)
[2019-07-02] MEDS: BUDESONIDE 1 MG/2 ML NEBU INHALATION SCH ×2 (16:32→20:32)
[2019-07-02] MEDS: ENOXAPARIN 40 MG/0.4 ML SYRINGE SQ SCH (17:56)
[2019-07-02] MEDS: NAPROXEN 250 MG TAB PO SCH ×2 (17:57→21:50)
[2019-07-02] MEDS: LACTATED RINGERS 1,000 ML IV SCH ×2 (17:58→21:43)
[2019-07-02] MEDS: methylPREDNISolone SOD SUCCI 40 MG/ML 1 ML VIAL IV SCH (17:58)
[2019-07-02] MEDS: PIPERACILLIN-TAZOBACTAM 3.375 GM in SODIUM CHLORIDE 0.9% 100 ML IVPB SCH (17:58)
[2019-07-03] MEDS: PIPERACILLIN-TAZOBACTAM 3.375 GM in SODIUM CHLORIDE 0.9% 100 ML IVPB SCH ×3 (00:30→16:16)
[2019-07-03] MEDS: methylPREDNISolone SOD SUCCI 40 MG/ML 1 ML VIAL IV SCH ×3 (00:30→16:16)
[2019-07-03] MEDS: IPRATROPIUM-ALBUTEROL 3 ML NEB INHALATION SCH ×8 (01:29→20:24)
[2019-07-03] MEDS: LACTATED RINGERS 1,000 ML IV SCH ×3 (04:47→22:58)
[2019-07-03] MEDS: VANCOMYCIN 1,750 MG in SODIUM CHLORIDE 0.9% 500 ML 500 ML IVPB SCH (04:48)
[2019-07-03] MEDS: BUDESONIDE 1 MG/2 ML NEBU INHALATION SCH ×3 (07:36→20:24)
[2019-07-03] MEDS ORDERED: KETOROLAC 30 MG/ML 1 ML VIAL IVP PRN (07:51)
[2019-07-03] MEDS: NAPROXEN 250 MG TAB PO SCH (07:53)
[2019-07-03] MEDS: FAMOTIDINE 20 MG TAB PO SCH ×2 (07:58→21:25)
[2019-07-03] MEDS: ENOXAPARIN 40 MG/0.4 ML SYRINGE SQ SCH (07:58)
[2019-07-03 09:05] LABS: HCT 44.5 % (39.0-53.0); HGB 14.6 gm/dL (13.0-17.5); MCH 30.5 pg (25.0-35.0); MCHC 32.7 g/dL (31.0-37.0); MCV 93.3 fL (80.0-100.0); Mean Platelet Volume 7.9; Platelet Count 418 k/uL (150-450); RBC 4.76 m/uL (4.30-5.90); RDW 12.8 % (11.5-15.5); WBC 20.5 k/uL (3.8-10.6)
[2019-07-03 09:22] LABS: African American GFR (CKD) >90 (>60 ml/min/1.73 sqM); Anion Gap 11 mmol/L; Blood Urea Nitrogen 16 mg/dL (9-20); Calcium 9.5 mg/dL (8.4-10.2); Carbon Dioxide 27 mmol/L (22-30); Chloride 101 mmol/L (98-107); Glucose 113 mg/dL (74-99); Non-African American GFR(CKD) >90 (>60 ml/min/1.73 sqM); Potassium 5.1 mmol/L (3.5-5.1); Sodium 139 mmol/L (137-145)
[2019-07-03] MEDS ORDERED: NICOTINE POLACRILEX 2 MG GUM BUCCAL PRN (11:58)
[2019-07-03] MEDS: NICOTINE 21MG/24HR PATCH TRANSDERM SCH ×2 (12:07→21:25)
[2019-07-03] MEDS: VANCOMYCIN 1,500 MG in SODIUM CHLORIDE 0.9% 250 ML IVPB SCH ×2 (13:00→21:26)
--- NOTE | 2019-07-03 23:36 | P.PN ---
Progress Note - Text Progress Note Date: 07/03/19 Chief Complaint: Cough, sputum History of presenting complaint: This is a pleasant [address] mckeon from [facility]. Patient normally in good health except for herniated disc and some neuropathy from there. 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 Initially patient's 6-year-old son got sick and the mother got sick. For about a week. Patient started of with vomiting, cough, fever of 103., tired rundown. Also some diarrhea and aching muscles.. Patient come to the ER yesterday. Patient in the ER was felt to be pericarditis and was discharged home on colchicine and Motrin. Patient presents was still cough yellow-brown sputum, significant left-sided pleuritic chest pain. Predominantly with deep breathing or with coughing. Appetite has not been good. Tired rundown. Admitted. Admitted with bilateral pneumonia, positive blood cultures for S pneumoniae. Today-. He is slightly better. Still coughing up hellen sputum. Patient had been reluctant to take his bronchodilators. l pleuritic pain is improving. On IV Toradol. at the bedside. Review of systems: Was done for constitutional, cardiovascular, GI, pulmonary. relevant finding as above Active Medications Acetaminophen (Tylenol Tab) 650 mg PO Q6HR PRN PRN Reason: Mild Pain or Fever > 100.5 Last Admin: 07/02/19 19:53 Dose: 650 mg Documented by: Albuterol/Ipratropium (Duoneb 0.5 Mg-3 Mg/3 Ml Soln) 3 ml INHALATION RT-QID [facility] Last Admin: 07/03/19 20:24 Dose: 3 ml Documented by: Budesonide (Pulmicort) 1 mg INHALATION RT-BID [facility] Last Admin: 07/03/19 20:24 Dose: 1 mg Documented by: Enoxaparin Sodium (Lovenox) 40 mg SQ DAILY [facility] Last Admin: 07/03/19 07:58 Dose: 40 mg Documented by: Famotidine (Pepcid) 20 mg PO BID [facility] Last Admin: 07/03/19 21:25 Dose: 20 mg Documented by: Piperacillin Sod/Tazobactam (Sod 3.375 gm/ Sodium Chloride) 100 mls @ 25 mls/hr IVPB Q8H [facility] Last Admin: 07/03/19 16:16 Dose: 25 mls/hr Documented by: Lactated Ringer's (Lactated Ringers) 1,000 mls @ 125 mls/hr IV .Q8H [facility] Last Admin: 07/03/19 22:58 Dose: Not Given Documented by: Vancomycin HCl 1,500 mg/ (Sodium Chloride) 250 mls @ 125 mls/hr IVPB Q8H [facility] Last Admin: 07/03/19 21:26 Dose: 125 mls/hr Documented by: Ketorolac Tromethamine (Toradol) 15 mg IVP Q6HR PRN PRN Reason: Pain Stop: 07/07/19 07:51 Last Admin: 07/03/19 07:59 Dose: 15 mg Documented by: Methylprednisolone Sodium Succinate (Solu-Medrol) 40 mg IV Q8HR [facility] Last Admin: 07/03/19 16:16 Dose: 40 mg Documented by: Miscellaneous Information (Vancomycin Trough Due) 0 each MISCELLANE DIRECTED ONE Stop: 07/04/19 13:01 Naloxone HCl (Narcan) 0.2 mg IV Q2M PRN PRN Reason: Opioid Reversal Nicotine (Habitrol 21mg/24hr Patch) 1 patch TRANSDERM DAILY [facility] Last Admin: 07/03/19 21:25 Dose: 1 patch Documented by: Nicotine Polacrilex (Nicorette Gum) 2 mg BUCCAL Q4HR PRN PRN Reason: Nicotine Cravings Physical examination: VITAL SIGNS: 97.8, 77, 18, 143/81, 94% on room air GENERAL: Sitting on bed, looking a bit better EYES: Pupils equal. Conjunctiva normal. HEENT: External appearance of nose and ears normal, oral cavity grossly normal. NECK: JVD not raised; masses not palpable. HEART: First and second heart sounds are normal; no edema. No pericardial rub LUNGS: Respiratory rate increased, decreased breath sounds some wheezing ABDOMEN: Soft, nontender, liver spleen not palpable, no masses palpable. PSYCH: [Alert and oriented x3; mood and affect anxious. INVESTIGATIONS, reviewed in the clinical context: White count 20.5 hemoglobin 14.6 potassium 5.1 Problem calcitonin 0.67 Blood culture-streptococcus pneumoniae Previous testing White count 26 hemoglobin 15.9, increased neutrophils, potassium 4.3, crit 0.95. Influenza type A and B both negative. EKG tracing-personally reviewed by me. No ST segment changes sinus rhythm. No evidence of pericarditis. Chest CTA-bilateral infiltrates Assessment: -Acute bilateral S pneumoniae with positive blood cultures causing sepsis, POA -Acute COPD exacerbation in a smoker -Chronic nicotine dependence patient cigarette smoker -Recreational marijuana use -Left-sided pleurisy. Plan: Patient clinically responding to Zosyn. We'll DC the vancomycin. ID was consulted. D counseling was done with the patient and questions were answered. Did explain it was not safe for patient to leave today. Admitted to the hospital at least for at least another 24 hours. Patient also refuses bronchodilators and counseling for the same. Total time spent today was about 45 minutes over 25 minutes of discussion
[2019-07-04] MEDS: PIPERACILLIN-TAZOBACTAM 3.375 GM in SODIUM CHLORIDE 0.9% 100 ML IVPB SCH ×2 (00:50→09:05)
--- NOTE | 2019-07-04 07:10 | CONS ---
CONSULTATION DATE OF SERVICE: 07/03/2019 REASON FOR CONSULTATION: Pneumococcal sepsis. HISTORY OF PRESENT ILLNESS: The patient is a 39-year-old male presenting to the ER at [facility] on the 30 of June with chief complaints of left-sided chest pain. The patient's symptoms have been going on for a few days before he presented to the hospital. He described the pain to the left side of the chest to be sharp and throbbing and worse with taking a deep breath, intensity could be almost 7 to 8 out of 10 and no radiation. The patient also had associated cough which has been moderate in intensity and has been bringing up some yellow sputum. No hemoptysis. The patient has been complaining of fever with chills with these symptoms and the patient was evaluated by the ER physician. On arrival to the ER, the patient has been afebrile. The patient did have elevated white count 26,000. The patient did have a normal creatinine, procalcitonin 0.67. Influenza PCR was negative. The patient did have a CT angiogram and that has been negative for PE; however, showed bilateral patchy pneumonia and atelectasis. The patient has been treated with vancomycin and Zosyn with blood cultures now showing a Streptococcus pneumoniae that prompted Infectious Disease consultation. REVIEW OF SYSTEMS: Positive points have been mentioned in HPI. Rest of the systems are negative. PAST MEDICAL HISTORY: Chronic low back pain from herniated discs, also history of ADHD and anxiety. PAST SURGICAL HISTORY: He had no major surgery. SOCIAL HISTORY: Current everyday smoker. Occasionally drinks and marijuana use. FAMILY HISTORY: No pertinent findings noticed. ALLERGIES: No known drug allergies. MEDICATIONS: Medications include the patient is currently on Tylenol, DuoNeb, Pulmicort, Lovenox, Pepcid, Toradol, lactated Ringers, Solu-Medrol, Vancomycin and Zosyn. PHYSICAL EXAMINATION: Blood pressure is 135/70 with the pulse of 75, temperature 98.1. He is 96% on 2 L nasal cannula. General description is a middle-aged male up in the bed in no distress. No tachypnea or accessory muscle of respiration use. HEENT: Examination shows no pallor or scleral icterus. Oral mucous membrane is dry. No pharyngeal erythema or thrush. NECK: Trachea central. No thyromegaly. LUNGS: Unlabored breathing. Decreased breath sounds at the bases. No wheeze. HEART: S1, S2. Regular rate and rhythm. ABDOMEN: Soft, no tenderness. EXTREMITIES: No edema of the feet. SKIN EXAMINATION: No rash or mass palpable. NEUROLOGIC: The patient is awake, alert, oriented. Mood and affect normal. LABS: Hemoglobin is 14.6, white count 20.5, admission white count 26,000. BUN of 16, creatinine 0.89. Blood culture with strep pneumoniae. DIAGNOSTIC IMPRESSION AND PLAN: Patient with Streptococcus pneumoniae sepsis in this patient who presented to the hospital with left-sided chest pain, likely secondary to pneumonia with no clear history of recent antibiotic exposure could be sensitive pathogen. However, not entirely excluded. PLAN: 1. Vancomycin pharmacy to dose target of 15 watching his kidney functions and Vanco trough closely. 2. Discontinue Zosyn. 3. Add Rocephin 2 grams daily. 4. We will follow up on clinical condition and culture to further adjust medication if needed. Thank you for this consultation. Will follow this patient along with you. MMODL / IJN: [id number] /
[2019-07-04 07:51] LABS: HCT 39.2 % (39.0-53.0); HGB 13.2 gm/dL (13.0-17.5); MCH 30.6 pg (25.0-35.0); MCHC 33.6 g/dL (31.0-37.0); MCV 91.1 fL (80.0-100.0); Mean Platelet Volume 7.1; Platelet Count 510 k/uL (150-450); RDW 12.8 % (11.5-15.5); WBC 33.1 k/uL (3.8-10.6)
[2019-07-04 08:02] LABS: African American GFR (CKD) >90 (>60 ml/min/1.73 sqM); Anion Gap 10 mmol/L; Blood Urea Nitrogen 17 mg/dL (9-20); Calcium 9.6 mg/dL (8.4-10.2); Carbon Dioxide 25 mmol/L (22-30); Chloride 105 mmol/L (98-107); Glucose 115 mg/dL (74-99); Non-African American GFR(CKD) >90 (>60 ml/min/1.73 sqM); Potassium 4.6 mmol/L (3.5-5.1); Sodium 140 mmol/L (137-145)
[2019-07-04] MEDS: IPRATROPIUM-ALBUTEROL 3 ML NEB INHALATION SCH ×4 (08:24→20:30)
[2019-07-04] MEDS: BUDESONIDE 1 MG/2 ML NEBU INHALATION SCH ×2 (08:25→20:30)
[2019-07-04] MEDS ORDERED: predniSONE 20 MG TAB PO SCH (09:00)
[2019-07-04] MEDS: ENOXAPARIN 40 MG/0.4 ML SYRINGE SQ SCH (09:04)
[2019-07-04] MEDS: NICOTINE 21MG/24HR PATCH TRANSDERM SCH (09:04)
[2019-07-04] MEDS: FAMOTIDINE 20 MG TAB PO SCH ×2 (09:05→21:16)
[2019-07-04] MEDS: LACTATED RINGERS 1,000 ML IV SCH ×2 (09:06→16:18)
[2019-07-04] MEDS ORDERED: VANCOMYCIN TROUGH DUE 1 EACH MISC MISCELLANE ONE (13:00)
--- NOTE | 2019-07-04 16:44 | PN ---
PROGRESS NOTE DATE OF SERVICE: 07/04/2019. REASON FOR FOLLOWUP: Pneumonia and strep pneumo bacteremia. INTERVAL HISTORY: The patient is currently afebrile. The patient has been breathing more comfortably. The patient denies having any chest pain. Cough has decreased in intensity. No hemoptysis. No nausea, no vomiting. No abdominal pain. No diarrhea. PHYSICAL EXAMINATION: Blood pressure 135/84 with a pulse of 72, temperature 98.5. He is 95% on room air. General description is a middle-aged male up in the bed in no distress. Respiratory system: Unlabored breathing. Decreased intensity in the breath sounds in the base. No wheeze. Heart S1, S2. Regular rate and rhythm. Abdomen soft, no tenderness. LABS: Hemoglobin 13.4, white count of 3.1. BUN of 17, creatinine 0.93. Blood culture has been finalized with strep pneumo, sensitive pathogen. DIAGNOSTIC IMPRESSION AND PLAN: 1. Patient with step pneumo bacteremia, source is pneumonia left-sided. The patient at this time seems to have shown clinical improvement. Antibiotic will be adjusted to Rocephin 2 g daily. Blood cultures will be repeated to document clearance of his bacteremia. 2. Elevated white count more likely steroid effect, which has been discontinued yesterday. Expect the white count did show downward trend. This has been explained to the patient's family in layman's terms. We will repeat a CBC tomorrow. Continue supportive care. MMODL / IJN: [id number] /
[2019-07-04 20:31] LABS: Glucose,Whole Blood 131 mg/dL (75-99)
--- NOTE | 2019-07-04 22:40 | P.PN ---
Progress Note - Text Progress Note Date: 07/04/19 Chief Complaint: Cough, sputum History of presenting complaint: This is a pleasant [address] mckeon from [facility]. Patient normally in good health except for herniated disc and some neuropathy from there. 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 Initially patient's 6-year-old son got sick and the mother got sick. For about a week. Patient started of with vomiting, cough, fever of 103., tired rundown. Also some diarrhea and aching muscles.. Patient come to the ER yesterday. Patient in the ER was felt to be pericarditis and was discharged home on colchicine and Motrin. Patient presents was still cough yellow-brown sputum, significant left-sided pleuritic chest pain. Predominantly with deep breathing or with coughing. Appetite has not been good. Tired rundown. Admitted. Admitted with bilateral pneumonia, positive blood cultures for S pneumoniae. Started on IV vancomycin and Zosyn. Today-. Pleuritic chest pain improved. Breathing much improved. Breathing much better. Oral intake better. at the bedside. Eating better. Review of systems: Was done for constitutional, cardiovascular, GI, pulmonary. relevant finding as above Active Medications Acetaminophen (Tylenol Tab) 650 mg PO Q6HR PRN PRN Reason: Mild Pain or Fever > 100.5 Last Admin: 07/02/19 19:53 Dose: 650 mg Documented by: Albuterol/Ipratropium (Duoneb 0.5 Mg-3 Mg/3 Ml Soln) 3 ml INHALATION RT-QID [facility] Last Admin: 07/04/19 20:30 Dose: 3 ml Documented by: Budesonide (Pulmicort) 1 mg INHALATION RT-BID [facility] Last Admin: 07/04/19 20:30 Dose: 1 mg Documented by: Enoxaparin Sodium (Lovenox) 40 mg SQ DAILY [facility] Last Admin: 07/04/19 09:04 Dose: 40 mg Documented by: Famotidine (Pepcid) 20 mg PO BID [facility] Last Admin: 07/04/19 21:16 Dose: 20 mg Documented by: Lactated Ringer's (Lactated Ringers) 1,000 mls @ 125 mls/hr IV .Q8H [facility] Last Admin: 07/04/19 16:18 Dose: 125 mls/hr Documented by: Ceftriaxone Sodium 2 gm/ (Sodium Chloride) 50 mls @ 100 mls/hr IVPB Q24HR [facility] Last Admin: 07/04/19 16:18 Dose: 100 mls/hr Documented by: Ketorolac Tromethamine (Toradol) 15 mg IVP Q6HR PRN PRN Reason: Pain Stop: 07/07/19 07:51 Last Admin: 07/03/19 07:59 Dose: 15 mg Documented by: Naloxone HCl (Narcan) 0.2 mg IV Q2M PRN PRN Reason: Opioid Reversal Nicotine (Habitrol 21mg/24hr Patch) 1 patch TRANSDERM DAILY [facility] Last Admin: 07/04/19 09:04 Dose: 1 patch Documented by: Nicotine Polacrilex (Nicorette Gum) 2 mg BUCCAL Q4HR PRN PRN Reason: Nicotine Cravings Prednisone () 40 mg PO DAILY [facility] Last Admin: 07/04/19 09:05 Dose: 40 mg Documented by: Physical examination: VITAL SIGNS: 98.5, 55, 16, Pressure 135/84, 95% GENERAL: Sitting at the edge to bed. Overall improved EYES: Pupils equal. Conjunctiva normal. HEENT: External appearance of nose and ears normal, oral cavity grossly normal. NECK: JVD not raised; masses not palpable. HEART: First and second heart sounds are normal; no edema. No pericardial rub LUNGS: Respiratory rate normal, decreased breath sounds ABDOMEN: Soft, nontender, liver spleen not palpable, no masses palpable. PSYCH: [Alert and oriented x3; mood and affect anxious. INVESTIGATIONS, reviewed in the clinical context: White count 33.1 potassium 4.6 creatinine 0.93 Previous testing Problem calcitonin 0.67 Blood culture-streptococcus pneumoniae White count 26 hemoglobin 15.9, increased neutrophils, potassium 4.3, crit 0.95. Influenza type A and B both negative. EKG tracing-personally reviewed by me. No ST segment changes sinus rhythm. No evidence of pericarditis. Chest CTA-bilateral infiltrates Assessment: -Acute bilateral S pneumoniae with positive blood cultures causing sepsis, POA, improving -Acute COPD exacerbation in a smoker, improving -Chronic nicotine dependence patient cigarette smoker -Recreational marijuana use -Left-sided pleurisy. Plan: Patient is clinically improving. Fevers have come down. Patient has been taking his bronchodilators. Follow with ID. Elevated white count from prednisone. Cut back the dose to 30 mg tomorrow. Repeat blood cultures been ordered for tomorrow morning per ID. Discussed with patient and . Patient very anxious to go home
[2019-07-05] MEDS: LACTATED RINGERS 1,000 ML IV SCH ×2 (02:02→07:10)
[2019-07-05 02:45] VITALS: RESP 18; TEMP 97.6
[2019-07-05 07:21] VITALS: BP 168/86
[2019-07-05] MEDS: BUDESONIDE 1 MG/2 ML NEBU INHALATION SCH (07:40)
[2019-07-05] MEDS: IPRATROPIUM-ALBUTEROL 3 ML NEB INHALATION SCH ×2 (07:40→11:27)
[2019-07-05 07:57] VITALS: PULSE 78
[2019-07-05] MEDS: NICOTINE 21MG/24HR PATCH TRANSDERM SCH (08:27)
[2019-07-05] MEDS: FAMOTIDINE 20 MG TAB PO SCH (08:27)
[2019-07-05] MEDS: ENOXAPARIN 40 MG/0.4 ML SYRINGE SQ SCH (08:31)
[2019-07-05] MEDS ORDERED: predniSONE 10 MG TAB PO SCH (09:00)
[2019-07-05 09:38] LABS: Basophils % (A) 0 %; Eosinophils % (A) 0 %; HCT 38.9 % (39.0-53.0); HGB 12.6 gm/dL (13.0-17.5); Lymphocytes # (A) 2.9 k/uL (1.0-4.8); Lymphocytes % (A) 20 %; MCH 29.7 pg (25.0-35.0); MCHC 32.5 g/dL (31.0-37.0); MCV 91.2 fL (80.0-100.0); Mean Platelet Volume 7.2; Monocytes # (A) 1.2 k/uL (0-1.0); Monocytes % (A) 8 %; Neutrophils # (A) 10.2 k/uL (1.3-7.7); Neutrophils % (A) 69 %; Platelet Count 526 k/uL (150-450); RBC 4.26 m/uL (4.30-5.90); RDW 12.9 % (11.5-15.5); WBC 14.8 k/uL (3.8-10.6)
[2019-07-05 09:42] LABS: African American GFR (CKD) >90 (>60 ml/min/1.73 sqM); Anion Gap 10 mmol/L; Blood Urea Nitrogen 18 mg/dL (9-20); Calcium 9.3 mg/dL (8.4-10.2); Carbon Dioxide 26 mmol/L (22-30); Chloride 103 mmol/L (98-107); Glucose 92 mg/dL (74-99); Non-African American GFR(CKD) >90 (>60 ml/min/1.73 sqM); Potassium 3.8 mmol/L (3.5-5.1); Sodium 139 mmol/L (137-145)
--- NOTE | 2019-07-05 14:58 | PN ---
PROGRESS NOTE DATE OF SERVICE: 07/05/2019 REASON FOR FOLLOWUP: Strep pneumo bacteremia and pneumonia. INTERVAL HISTORY: The patient is seen on rounds this morning. Patient has been afebrile, breathing comfortably. Patient denies having any chest pain or shortness or cough. No nausea, vomiting, abdominal pain, no diarrhea. PHYSICAL EXAMINATION: Blood pressure is 152/86, pulse of 76 temperature is 97.6. He is 90% we description is a middle-aged male lying in bed in no distress respiratory system: Unlabored breathing. Decreased breath sounds no wheeze. Heart S1, S2. Abdomen: Soft, no tenderness. LABS: Hemoglobin is 12.4 abdominal wound 10.8, creatinine 1.0. Blood culture is so far incidents pending. DIAGNOSTIC IMPRESSION AND PLAN: Patient with step pneumo bacteremia, source is pneumonia. The patient has been insisting on going home. He was already dressed up and wants to leave. Does not want to stay for the IV antibiotic therapy. Antibiotics will be switched to a short course of Ceftin 500 mg twice ad day for two weeks. Prescription sent to the pharmacy, advised to follow up in the office in 1 week to make sure his blood cultures remain to be negative and remains to be negative. MMODL / IJN: [id number] /
[2019-07-05 16:41] LABS: HIV 1 AB Non-Reactive (Non-Reactive); HIV 2 AB Non-Reactive (Non-Reactive); HIV AB P24 Non-Reactive (Non-Reactive); HIV P24 AG Non-Reactive (Non-Reactive)
--- NOTE | 2019-07-05 22:07 | P.DS ---
Providers Date of admission: 07/01/19 23:57 Expected date of discharge: 07/05/19 Attending physician: Prakash Rizzo Consults: 07/03/19 12:30 Consult Physician Routine Consulting Provider: Abby Corona Consult Reason/Comments: Pneumococcal sepsis Do you want consulting provider notified?: Yes Primary care physician: Alcon Perea [facility] Course: Chief Complaint: Cough, sputum History of presenting complaint: This is a pleasant [address] perea from [facility]. Patient normally in good health except for herniated disc and some neuropathy from there. 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 Initially patient's 6-year-old son got sick and the mother got sick. For about a week. Patient started of with vomiting, cough, fever of 103., tired rundown. Also some diarrhea and aching muscles.. Patient come to the ER yesterday. Patient in the ER was felt to be pericarditis and was discharged home on colchicine and Motrin. Patient presents was still cough yellow-brown sputum, significant left-sided pleuritic chest pain. Predominantly with deep breathing or with coughing. Appetite has not been good. Tired rundown. Admitted. Admitted with bilateral pneumonia, positive blood cultures for S pneumoniae. Started on IV vancomycin and Zosyn. Today-. doing much better. Starting chest pain completely resolved. Breathing much improved. Starting diet. Up and about. Care was discussed with the patient and . Questions were answered. Cleared by ID. Consultation: Dr. Corona from [place] Physical examination: VITAL SIGNS: 97.6, 56, 18, blood pressure 160-86, 98% on room air GENERAL: Sitting at the edge to bed. comfortable EYES: Pupils equal. Conjunctiva normal. HEENT: External appearance of nose and ears normal, oral cavity grossly normal. NECK: JVD not raised; masses not palpable. HEART: First and second heart sounds are normal; no edema. No pericardial rub LUNGS: Respiratory rate normal, decreased breath sounds ABDOMEN: Soft, nontender, liver spleen not palpable, no masses palpable. PSYCH: [Alert and oriented x3; mood and affect anxious. INVESTIGATIONS, reviewed in the clinical context: white count 14.8 hemoglobin 12.6 potassium 3.8 pro calcitonin 0.19 Previous testing Problem calcitonin 0.67 Blood culture-streptococcus pneumoniae White count 26 hemoglobin 15.9, increased neutrophils, potassium 4.3, crit 0.95. Influenza type A and B both negative. EKG tracing-personally reviewed by me. No ST segment changes sinus rhythm. No evidence of pericarditis. Chest CTA-bilateral infiltrates HIV testing-negative Assessment: -Acute bilateral S pneumoniae with positive blood cultures causing sepsis, POA, -Acute COPD exacerbation in a smoker, -Chronic nicotine dependence patient cigarette smoker -Recreational marijuana use -Left-sided pleurisy. disposition: Home Patient Condition at Discharge: Stable Plan - Discharge Summary Discharge Rx Participant: No New Discharge Prescriptions: New Cefuroxime Axetil [Ceftin] 500 mg PO BID #24 tab Nicotine 21Mg/24Hr Patch [Habitrol] 1 patch TRANSDERM DAILY #14 patch Nicotine Polacrilex [Nicorette] 2 mg BUCCAL Q4HR PRN #30 gum PRN Reason: Nicotine Cravings Acetaminophen Tab [Tylenol] 650 mg PO Q6HR PRN tab PRN Reason: Mild Pain Or Fever > 100.5 Albuterol Inhaler [Ventolin Hfa Inhaler] 1 - 2 puff INHALATION RT-Q6H PRN #1 inhaler PRN Reason: Wheezing predniSONE 0 mg PO DIRECTED #6 tab Discharge Medication List Acetaminophen Tab [Tylenol] 650 mg PO Q6HR PRN tab 07/05/19 [Rx] Albuterol Inhaler [Ventolin Hfa Inhaler] 1 - 2 puff INHALATION RT-Q6H PRN #1 inhaler 07/05/19 [Rx] Cefuroxime Axetil [Ceftin] 500 mg PO BID #24 tab 07/05/19 [Rx] Nicotine 21Mg/24Hr Patch [Habitrol] 1 patch TRANSDERM DAILY #14 patch 07/05/19 [Rx] Nicotine Polacrilex [Nicorette] 2 mg BUCCAL Q4HR PRN #30 gum 07/05/19 [Rx] predniSONE 0 mg PO DIRECTED #6 tab 07/05/19 [Rx] Follow up Appointment(s)/Referral(s): Alcon Perea MD [Primary Care Provider] - 07/09/19 2:30 pm (Appointment set at [place] office Address: [address] [place] [address] ) Abby Corona MD [STAFF PHYSICIAN] - 07/17/19 10:30 am Patient Instructions/Handouts: Pneumonia (DC) Discharge/Stand Alone Forms: Work/School Release / Restrict
== END 2019-07-05 12:20 | disposition home or self-care (01) | DRG 871 ==
LOC: EC 22:44 → 4SSUR 23:57
PROVIDERS: ADMIT Hospitalist; ATTEND Hospitalist
DX: A40.3 Sepsis due to Streptococcus pneumoniae (principal); J13 Pneumonia due to Streptococcus pneumoniae; J44.0 Chronic obstructive pulmonary disease with (acute) lower respiratory infection; J44.1 Chronic obstructive pulmonary disease with (acute) exacerbation; F17.210 Nicotine dependence, cigarettes, uncomplicated; G62.9 Polyneuropathy, unspecified; F90.9 Attention-deficit hyperactivity disorder, unspecified type; F41.9 Anxiety disorder, unspecified; Z86.69 Personal history of other diseases of the nervous system and sense organs; Z87.39 Personal history of other diseases of the musculoskeletal system and connective tissue
CPT/HCPCS: 36415; 71275; 80048; 80053; 83605; 83690; 83735; 84145; 84484; 85025; 85027; 85610; 85730; 87040; 87070; 87077; 87186; 87205; 87390; 87502; 93005; 94640; 94760; 96374; 96375; 99285

== ENCOUNTER 2021-09-06 08:36 | Emergency (ER) | payer OTHER ==
[2021-09-06] MEDS ORDERED: MECLIZINE 25 MG TAB PO STA (08:54)
[2021-09-06] MEDS ORDERED: DIAZEPAM 5 MG/ML 2 ML INJ IVP STA (08:54)
[2021-09-06] MEDS ORDERED: SCOPOLAMINE 1 MG/72 HR PATCH TRANSDERM STA (08:54)
--- NOTE | 2021-09-06 08:56 | ED ---
General Adult HPI - General Chief complaint: Dizziness Stated complaint: Doesnt Fell well/off Time Seen by Provider: 09/06/21 08:40 Source: patient, RN notes reviewed, old records reviewed Mode of arrival: ambulatory Limitations: no limitations - History of Present Illness Initial comments: This is a 41-year-old male who presents emergency Department complaining that last night he came very dizzy and anytime he moves his head the dizziness gets worse per patient states he has not noticed of staying still or closing his eyes makes it better. Patient states he was drinking last night which is typical for him but he didn't drink that much compared to his baseline. Patient states he stopped drinking about 8:00 last night. Patient denies any headache patient denies any numbness or weakness. Patient states she just feels like he is moving in the room is still. Patient denies any nausea. Patient states he was kind of sweaty last night when it started but that has subsided. Patient denies any chest pain shortness of breath palpitations. Patient denies any recent fever chills or cough. Patient denies any abdominal pain. - Related Data Previous Rx's Medication Instructions Recorded Meclizine [Antivert] 25 mg PO TID #20 tab 09/06/21 Allergies Allergy/AdvReac Type Severity Reaction Status Date / Time No Known Allergies Allergy Verified 09/06/21 10:26 Review of Systems ROS Statement: Those systems with pertinent positive or pertinent negative responses have been documented in the HPI. ROS Other: All systems not noted in ROS Statement are negative. 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 down legs History of Any Multi-Drug Resistant Organisms: None Reported Past Surgical History: No Surgical Hx Reported Past Psychological History: No Psychological Hx Reported, ADD/ADHD, Anxiety Smoking Status: Current every day smoker Past Alcohol Use History: Daily Past Drug Use History: Marijuana - Past Family History Father History Unknown: Yes Mother History Unknown: Yes General Exam - General Exam Comments Initial Comments: GENERAL: Patient is well-developed and well-nourished. Patient is nontoxic and well- hydrated and is in mild distress. ENT: Neck is soft and supple. No significant lymphadenopathy is noted. Oropharynx is clear. Moist mucous membranes. Neck has full range of motion without eliciting any pain. EYES: The sclera were anicteric and conjunctiva were pink and moist. Extraocular movements were intact and pupils were equal round and reactive to light. Eyelids were unremarkable. PULMONARY: Unlabored respirations. Good breath sounds bilaterally. No audible rales rhonchi or wheezing was noted. CARDIOVASCULAR: There is a regular rate and rhythm without any murmurs gallops or rubs. ABDOMEN: Soft and nontender with normal bowel sounds. SKIN: Skin is clear with no lesions or rashes and otherwise unremarkable. NEUROLOGIC: Patient is alert and oriented x3. Cranial nerves II through XII are grossly int act. Motor and sensory are also intact. Normal speech, volume and content. Symmetrical smile. Patient's finger to nose is normal bilaterally MUSCULOSKELETAL: Normal extremities with adequate strength and full range of motion. LYMPHATICS: No significant lymphadenopathy is noted PSYCHIATRIC: Normal psychiatric evaluation. Limitations: no limitations Course Vital Signs 09/06/21 09/06/21 08:38 08:41 Temperature 98.2 F Pulse Rate 85 Respiratory 16 Rate Blood Pressure 159/89 O2 Sat by Pulse 96 Oximetry Medical Decision Making - Medical Decision Making EKG shows sinus rhythm at 67 bpm OH interval 254 Lewis is 90 QT interval 397 QTC is 413. Patient's EKG shows no ST segment elevation or depression. Patient received a scopolamine patch Antivert and some Valium. I went back in and evaluated the patient later he was feeling considerably better. CT of the brain shows no acute abnormality. Chest x-ray shows no acute abnormality. - Lab Data Result diagrams: 09/06/21 09:01 09/06/21 09:01 Lab Results 09/06/21 09/06/21 09/06/21 Range/Units 09:01 09:01 09:01 WBC 7.8 (3.8-10.6) k/uL RBC 5.22 (4.30-5.90) m/uL Hgb 15.9 (13.0-17.5) gm/dL Hct 49.3 (39.0-53.0) % MCV 94.5 (80.0-100.0) fL MCH 30.4 (25.0-35.0) pg MCHC 32.2 (31.0-37.0) g/dL RDW 13.3 (11.5-15.5) % Plt Count 368 (150-450) k/uL MPV 6.8 Neutrophils % 63 % Lymphocytes % 23 % Monocytes % 7 % Eosinophils % 4 % Basophils % 1 % Neutrophils # 4.9 (1.3-7.7) k/uL Lymphocytes # 1.8 (1.0-4.8) k/uL Monocytes # 0.5 (0-1.0) k/uL Eosinophils # 0.3 (0-0.7) k/uL Basophils # 0.1 (0-0.2) k/uL PT 10.1 (9.0-12.0) sec INR 0.9 (<1.2) APTT 23.7 (22.0-30.0) sec Sodium 141 (137-145) mmol/L Potassium 4.3 (3.5-5.1) mmol/L Chloride 107 (98-107) mmol/L Carbon Dioxide 25 (22-30) mmol/L Anion Gap 9 mmol/L BUN 12 (9-20) mg/dL Creatinine 1.07 (0.66-1.25) mg/dL Est GFR (CKD-EPI)AfAm >90 (>60 ml/min/1.73 sqM) Est GFR (CKD-EPI)NonAf 86 (>60 ml/min/1.73 sqM) Glucose 95 (74-99) mg/dL POC Glucose (mg/dL) (75-99) mg/dL POC Glu Cash Manager ID Calcium 9.6 (8.4-10.2) mg/dL Magnesium 2.5 H (1.6-2.3) mg/dL Total Bilirubin 0.7 (0.2-1.3) mg/dL AST 29 (17-59) U/L ALT 30 (4-49) U/L Alkaline Phosphatase 96 (38-126) U/L Troponin I (0.000-0.034) ng/mL Total Protein 7.6 (6.3-8.2) g/dL Albumin 4.9 (3.5-5.0) g/dL Serum Alcohol 37 mg/dL 09/06/21 09/06/21 Range/Units 09:01 09:01 WBC (3.8-10.6) k/uL RBC (4.30-5.90) m/uL Hgb (13.0-17.5) gm/dL Hct (39.0-53.0) % MCV (80.0-100.0) fL MCH (25.0-35.0) pg MCHC (31.0-37.0) g/dL RDW (11.5-15.5) % Plt Count (150-450) k/uL MPV Neutrophils % % Lymphocytes % % Monocytes % % Eosinophils % % Basophils % % Neutrophils # (1.3-7.7) k/uL Lymphocytes # (1.0-4.8) k/uL Monocytes # (0-1.0) k/uL Eosinophils # (0-0.7) k/uL Basophils # (0-0.2) k/uL PT (9.0-12.0) sec INR (<1.2) APTT (22.0-30.0) sec Sodium (137-145) mmol/L Potassium (3.5-5.1) mmol/L Chloride (98-107) mmol/L Carbon Dioxide (22-30) mmol/L Anion Gap mmol/L BUN (9-20) mg/dL Creatinine (0.66-1.25) mg/dL Est GFR (CKD-EPI)AfAm (>60 ml/min/1.73 sqM) Est GFR (CKD-EPI)NonAf (>60 ml/min/1.73 sqM) Glucose (74-99) mg/dL POC Glucose (mg/dL) 95 (75-99) mg/dL POC Glu Cash Manager ID [facility] Calcium (8.4-10.2) mg/dL Magnesium (1.6-2.3) mg/dL Total Bilirubin (0.2-1.3) mg/dL AST (17-59) U/L ALT (4-49) U/L Alkaline Phosphatase (38-126) U/L Troponin I <0.012 (0.000-0.034) ng/mL Total Protein (6.3-8.2) g/dL Albumin (3.5-5.0) g/dL Serum Alcohol mg/dL Disposition Clinical Impression: Vertigo Disposition: HOME SELF-CARE Condition: Good Instructions (If sedation given, give patient instructions): Vertigo (ED) Prescriptions: Meclizine [Antivert] 25 mg PO TID #20 tab Is patient prescribed a controlled substance at d/c from ED?: No Referrals: Alcon Perea MD [Primary Care Provider] - 1-2 days Time of Disposition: 11:42
[2021-09-06 09:05] LABS: Glucose,Whole Blood 95 mg/dL (75-99)
[2021-09-06 09:26] LABS: Basophils # (A) 0.1 k/uL (0-0.2); Basophils % (A) 1 %; Eosinophils # (A) 0.3 k/uL (0-0.7); Eosinophils % (A) 4 %; HCT 49.3 % (39.0-53.0); HGB 15.9 gm/dL (13.0-17.5); Lymphocytes # (A) 1.8 k/uL (1.0-4.8); Lymphocytes % (A) 23 %; MCH 30.4 pg (25.0-35.0); MCHC 32.2 g/dL (31.0-37.0); MCV 94.5 fL (80.0-100.0); Mean Platelet Volume 6.8; Monocytes # (A) 0.5 k/uL (0-1.0); Monocytes % (A) 7 %; Neutrophils # (A) 4.9 k/uL (1.3-7.7); Neutrophils % (A) 63 %; Platelet Count 368 k/uL (150-450); RBC 5.22 m/uL (4.30-5.90); RDW 13.3 % (11.5-15.5); WBC 7.8 k/uL (3.8-10.6)
[2021-09-06 09:34] LABS: INR 0.9 (<1.2); Partial Thromboplastin Time 23.7 sec (22.0-30.0); Prothrombin Time 10.1 sec (9.0-12.0)
[2021-09-06 09:36] LABS: ALT 30 U/L (4-49); AST 29 U/L (17-59); African American GFR (CKD) >90 (>60 ml/min/1.73 sqM); Albumin 4.9 g/dL (3.5-5.0); Alcohol 37 mg/dL; Alkaline Phosphatase 96 U/L (38-126); Anion Gap 9 mmol/L; Blood Urea Nitrogen 12 mg/dL (9-20); Calcium 9.6 mg/dL (8.4-10.2); Carbon Dioxide 25 mmol/L (22-30); Chloride 107 mmol/L (98-107); Glucose 95 mg/dL (74-99); Magnesium 2.5 mg/dL (1.6-2.3); Non-African American GFR(CKD) 86 (>60 ml/min/1.73 sqM); Potassium 4.3 mmol/L (3.5-5.1); Sodium 141 mmol/L (137-145); Total Bilirubin 0.7 mg/dL (0.2-1.3); Total Protein 7.6 g/dL (6.3-8.2)
--- NOTE | 2021-09-06 09:42 | CT ---
EXAMINATION TYPE: CT brain wo con DATE OF EXAM: 09/06/2021 COMPARISON: 03/26/2015 HISTORY: 41-year-old male vertigo, Dizziness. TECHNIQUE: Examination was done in axial plane without intravenous contrast. Coronal and sagittal r econstructions performed. CT DLP: 1159.4 mGycm Automated exposure control for dose reduction was used. FINDINGS: There is no evidence of acute intracranial hemorrhage, acute ischemic changes, mass, mass-effect, or extra-axial fluid collection. There is no effacement of cerebral sulci or basal subarachnoid cister ns. There is no hydrocephalus. There is no midline shift. Shaw-white matter distinction is preserv ed. 1 cm polyp or mucosal retention cyst lateral wall left maxillary sinus. Trace mucosal thickening ethm oid air cells. Mastoid air cells well pneumatized. Orbits and globes are intact. IMPRESSION: No acute intracranial abnormality seen.
--- NOTE | 2021-09-06 09:44 | XR ---
EXAMINATION TYPE: XR chest 2V DATE OF EXAM: 09/06/2021 COMPARISON: 07/01/2019 HISTORY: 41 year-old male chest pain, dizziness TECHNIQUE: PA and lateral views FINDINGS: Heart normal size. Aorta and pulmonary vasculature within normal limits. No consolidation or pleural effusion. Hyperinflation. Bilateral nipple shadows and a right-sided nipple ring. IMPRESSION: Hyperinflation which could be from depth of inspiration or underlying emphysema. Clinically correlate . Otherwise, no acute process seen.
[2021-09-06 12:04] VITALS: BP 123/84; PULSE 64; RESP 18; TEMP 97.8
== END 2021-09-06 12:04 | disposition home or self-care (01) ==
LOC: EC 08:36
DX: R42 Dizziness and giddiness (principal); F17.200 Nicotine dependence, unspecified, uncomplicated
CPT/HCPCS: 36415; 93005; 80053; 83735; 84484; 85025; 85610; 85730; 71046; 70450; 99284; 96374; G0480; J3360; 80320